=== PATIENT | male | born 1955 | race Caucasian/White ===

== ENCOUNTER 2016-11-26 15:10 | Inpatient (IN) | payer BC ==
[2016-11-26] MEDS ORDERED: Ondansetron 4 MG/2 ML SDV IVPUSH ONE (15:17)
[2016-11-26] MEDS ORDERED: Pantoprazole 40 MG Vial IVPUSH ONE (15:18)
[2016-11-26] MEDS: Sodium Chloride 0.9% 10 ML Syringe FLUSH PRN ×5 (15:24→23:45)
[2016-11-26] MEDS ORDERED: Albuterol/Ipratropium 3.0-0.5 MG/3 ML Neb Soln ONE (15:37)
[2016-11-26] MEDS ORDERED: Albuterol/Ipratropium 3.0-0.5 MG/3 ML Neb Soln NEB ONE (15:41)
[2016-11-26] MEDS ORDERED: Iopamidol 755 Mg/ML 100 ML Bottle IV ONE (16:52)
--- NOTE | 2016-11-26 18:31 | EDM.PDOC ---
ED HPI GENERAL MEDICAL PROBLEM - General Chief Complaint: Respiratory Problem Stated Complaint: SOB Time Seen by Provider: 11/26/16 15:10 Source of Information: Reports: Patient History Limitations: Reports: No Limitations - History of Present Illness INITIAL COMMENTS - FREE TEXT/NARRATIVE: 61 y.o.w.m with h/o of Intermittant Hypoglycemia since a child, pneumonia came to the ed with chest pain when taking a deep breath. Pt lives in his truck-18 man. Pt states his pain comes on when he takes a deep breath or turns to the side. "something is wring with me" he stated. BP was 98/56. O2 94 PULS was 112. No N/V/D Onset: Unknown/Unsure Onset Date: 11/20/16 Onset Time: 07:00 Duration: Day(s):, Intermittent Location: Reports: Chest, Generalized Quality: Reports: Dull Severity: Moderate Improves with: Reports: Cold Therapy, Immobilization, Rest Worsens with: Reports: Movement Context: Reports: Other (lives in his truck) Associated Symptoms: Reports: Weakness Generalized Pain Score (Numeric/FACES): 8 - Related Data Allergies Allergy/AdvReac Type Severity Reaction Status Date / Time No Known Allergies Allergy Verified 11/26/16 15:19 Home Meds: Home Meds Levothyroxine 75 mcg PO ACBREAKFAST 11/26/16 [History] Meloxicam [Mobic] 15 mg PO DAILY 11/26/16 [History] Past Medical History Respiratory History: Reports: SOB Endocrine/Metabolic History: Reports: Diabetes, Type II - Infectious Disease History Infectious Disease History: Reports: Chicken Pox Social & Family History - Tobacco Use Smoking Status *Q: Never Smoker - Recreational Drug Use Recreational Drug Use: No ED ROS GENERAL - Review of Systems Review Of Systems: See Below Constitutional: Reports: Weakness HEENT: Reports: No Symptoms Respiratory: Reports: Pleuritic Chest Pain Cardiovascular: Reports: Chest Pain Endocrine: Reports: Other (h/o hypoglycemia) GI/Abdominal: Reports: No Symptoms : Reports: No Symptoms Musculoskeletal: Reports: Muscle Pain Skin: Reports: No Symptoms Neurological: Reports: No Symptoms Psychiatric: Reports: No Symptoms Hematologic/Lymphatic: Reports: No Symptoms Immunologic: Reports: No Symptoms ED EXAM, GENERAL - Physical Exam Exam: See Below Exam Limited By: No Limitations General Appearance: Alert, WD/WN, Mild Distress, Obese (morbid) Eye Exam: Bilateral Eye: Normal Inspection Ears: Normal External Exam Ear Exam: Bilateral Ear: Auricle Normal Nose: Normal Inspection, Normal Mucosa Throat/Mouth: Normal Lips, Other (dry mucosal membrane) Head: Atraumatic, Normocephalic Neck: Normal Inspection, Supple, Non-Tender, Full Range of Motion Respiratory/Chest: No Respiratory Distress, Lungs Clear, Normal Breath Sounds, No Accessory Muscle Use Cardiovascular: Normal Peripheral Pulses, Regular Rate, Rhythm, No Edema, No Gallop, No JVD Peripheral Pulses: 1+: Femoral (L), Femoral (R) GI/Abdominal: Normal Bowel Sounds, Soft, Non-Tender, No Organomegaly (Male) Exam: Deferred Rectal (Males) Exam: Deferred Back Exam: Normal Inspection, Full Range of Motion Extremities: Normal Inspection, Normal Range of Motion Neurological: Alert, Oriented, CN II-XII Intact, Normal Cognition, Normal Gait Psychiatric: Normal Affect, Normal Mood Skin Exam: Warm, Dry, Intact, Normal Color, No Rash Lymphatic: No Adenopathy EKG INTERPRETATION EKG Date: 11/26/16 Time: 15:10 Rhythm: NSR Rate (Beats/Min): 112 [place]: LAD-Left [place] Deviation P-Wave: Present QRS: Normal ST-T: Normal QT: Normal Comparison: NA - No Prior EKG Course - Vital Signs Text/Narrative:: 61 y.o.w.m with h/o of Intermittant Hypoglycemia since a child, pneumonia came to the ed with chest pain when taking a deep breath. Pt lives in his truck-18 man. Pt states his pain comes on when he takes a deep breath or turns to the side. "something is wring with me" he stated. BP was 98/56. O2 94 PULS was 112. No N/V/D PE: Morbid obes, chest pain with movement Labs: WBC 14.6 Neutrophils 93%D Dimer 408, Na 132 BNP 47 UA: Occult hematuria Imaging: CT chest neg for PE, No infiltrates. Impresion: Morbid obese, gen weakness, H/O pneumonia Tx: NS, Zofran, Duoneb, Protonix Reexam: Pt stated he is doing better but still feels weak. Plan: Admit for observation Last Recorded V/S: Last Vital Signs Temp 36.8 C 11/27/16 04:11 Pulse 93 11/27/16 04:11 Resp 18 11/27/16 04:11 BP 104/62 11/27/16 04:11 Pulse Ox 94 L 11/27/16 04:11 - Orders/Labs/Meds Orders: Active Orders 24 hr Category Date Time Status Ang Chest [CT] Stat Exams 11/26/16 16:30 Taken Chest 1V Frontal [CR] Stat Exams 11/26/16 15:17 Taken Sodium Chloride 0.9% [Saline Flush] Med 11/26/16 15:18 Active 10 ml FLUSH ASDIRECTED PRN Saline Lock Insert [OM.PC] Routine Oth 11/26/16 15:18 Ordered EKG 12 Lead [EK] Routine Ther 11/26/16 15:18 Ordered Medication Orders Acetaminophen (Tylenol) 650 mg PO Q4H PRN PRN Reason: Headache Last Admin: 11/27/16 01:11 Dose: 650 mg Admin: 11/26/16 22:26 Dose: 650 mg Sodium Chloride (Normal Saline) 250 mls @ 0 mls/hr IV ASDIRECTED ZINA PRN Reason: KVO Last Admin: 11/26/16 22:33 Dose: 25 mls/hr Sodium Chloride (Saline Flush) 10 ml FLUSH ASDIRECTED PRN PRN Reason: Keep Vein Open Last Admin: 11/27/16 05:13 Dose: 10 ml Admin: 11/26/16 23:45 Dose: 10 ml Admin: 11/26/16 16:50 Dose: 10 ml Admin: 11/26/16 16:48 Dose: 10 ml Admin: 11/26/16 15:27 Dose: 10 ml Admin: 11/26/16 15:24 Dose: 10 ml Sodium Chloride (Saline Flush) 10 ml FLUSH ASDIRECTED PRN PRN Reason: IV Use Labs: Laboratory Tests 11/26/16 11/26/16 11/26/16 Range/Units 15:30 15:30 15:30 WBC 14.8 H (4.5-12.0) X10-3/uL RBC 4.65 (4.30-5.75) x10(6)uL Hgb 14.1 (11.5-15.5) g/dL Hct 40.9 (30.0-51.3) % MCV 88.1 (80-96) fL MCH 30.4 (27.7-33.6) pg MCHC 34.5 (32.2-35.4) g/dL RDW 12.1 (11.5-15.5) % Plt Count 163 (125-369) X10(3)uL MPV 8.6 (7.4-10.4) fL Add Manual Diff Yes Neutrophils % (Manual) 93 H (46-82) % Band Neutrophils % 3 (0-6) % Lymphocytes % (Manual) 1 L (13-37) % Monocytes % (Manual) 3 L (4-12) % D-Dimer, Quantitative 408 H (100-400) ng/mL Sodium 132 L (135-145) mmol/L Potassium 3.8 (3.5-5.3) mmol/L Chloride 100 (100-110) mmol/L Carbon Dioxide 24 (23-29) mmol/L BUN 16 (8-23) mg/dL Creatinine 0.9 (0.6-1.3) mg/dL Est Cr Clr Drug Dosing 89.00 mL/min Estimated GFR (MDRD) > 60 (>60) BUN/Creatinine Ratio 17.8 (9-20) Glucose 167 H (80-116) mg/dL Lactic Acid (0.5-2.2) mmol/L Calcium 9.3 (8.6-10.2) mg/dL Troponin I (0.02-0.06) NG/ML B-Natriuretic Peptide (0-100) pg/mL Urine Color (YELLOW) Urine Appearance (CLEAR) Urine pH (5.0-6.5) Ur Specific Ponce (1.010-1.025) Urine Protein (NEGATIVE) mg/dL Urine Glucose (UA) (NEGATIVE) mg/dL Urine Ketones (NEGATIVE) mg/dL Urine Occult Blood (NEGATIVE) Urine Nitrite (NEGATIVE) Urine Bilirubin (NEGATIVE) Urine Urobilinogen (NEGATIVE) mg/dL Ur Leukocyte Esterase (NEGATIVE) Urine RBC (0) Urine WBC (0) Ur Squamous Epith Cells (NS,R,O) Urine Bacteria (NS) 11/26/16 11/26/16 11/26/16 Range/Units 15:30 15:30 15:30 WBC (4.5-12.0) X10-3/uL RBC (4.30-5.75) x10(6)uL Hgb (11.5-15.5) g/dL Hct (30.0-51.3) % MCV (80-96) fL MCH (27.7-33.6) pg MCHC (32.2-35.4) g/dL RDW (11.5-15.5) % Plt Count (125-369) X10(3)uL MPV (7.4-10.4) fL Add Manual Diff Neutrophils % (Manual) (46-82) % Band Neutrophils % (0-6) % Lymphocytes % (Manual) (13-37) % Monocytes % (Manual) (4-12) % D-Dimer, Quantitative (100-400) ng/mL Sodium (135-145) mmol/L Potassium (3.5-5.3) mmol/L Chloride (100-110) mmol/L Carbon Dioxide (23-29) mmol/L BUN (8-23) mg/dL Creatinine (0.6-1.3) mg/dL Est Cr Clr Drug Dosing mL/min Estimated GFR (MDRD) (>60) BUN/Creatinine Ratio (9-20) Glucose (80-116) mg/dL Lactic Acid 2.1 (0.5-2.2) mmol/L Calcium (8.6-10.2) mg/dL Troponin I < 0.01 L (0.02-0.06) NG/ML B-Natriuretic Peptide 45 (0-100) pg/mL Urine Color (YELLOW) Urine Appearance (CLEAR) Urine pH (5.0-6.5) Ur Specific [place] (1.010-1.025) Urine Protein (NEGATIVE) mg/dL Urine Glucose (UA) (NEGATIVE) mg/dL Urine Ketones (NEGATIVE) mg/dL Urine Occult Blood (NEGATIVE) Urine Nitrite (NEGATIVE) Urine Bilirubin (NEGATIVE) Urine Urobilinogen (NEGATIVE) mg/dL Ur Leukocyte Esterase (NEGATIVE) Urine RBC (0) Urine WBC (0) Ur Squamous Epith Cells (NS,R,O) Urine Bacteria (NS) 11/26/16 Range/Units 18:10 WBC (4.5-12.0) X10-3/uL RBC (4.30-5.75) x10(6)uL Hgb (11.5-15.5) g/dL Hct (30.0-51.3) % MCV (80-96) fL MCH (27.7-33.6) pg MCHC (32.2-35.4) g/dL RDW (11.5-15.5) % Plt Count (125-369) X10(3)uL MPV (7.4-10.4) fL Add Manual Diff Neutrophils % (Manual) (46-82) % Band Neutrophils % (0-6) % Lymphocytes % (Manual) (13-37) % Monocytes % (Manual) (4-12) % D-Dimer, Quantitative (100-400) ng/mL Sodium (135-145) mmol/L Potassium (3.5-5.3) mmol/L Chloride (100-110) mmol/L Carbon Dioxide (23-29) mmol/L BUN (8-23) mg/dL Creatinine (0.6-1.3) mg/dL Est Cr Clr Drug Dosing mL/min Estimated GFR (MDRD) (>60) BUN/Creatinine Ratio (9-20) Glucose (80-116) mg/dL Lactic Acid (0.5-2.2) mmol/L Calcium (8.6-10.2) mg/dL Troponin I (0.02-0.06) NG/ML B-Natriuretic Peptide (0-100) pg/mL Urine Color Yellow (YELLOW) Urine Appearance Clear (CLEAR) Urine pH 5.0 (5.0-6.5) Ur Specific [place] 1.010 (1.010-1.025) Urine Protein Negative (NEGATIVE) mg/dL Urine Glucose (UA) Normal (NEGATIVE) mg/dL Urine Ketones Negative (NEGATIVE) mg/dL Urine Occult Blood Moderate H (NEGATIVE) Urine Nitrite Negative (NEGATIVE) Urine Bilirubin Negative (NEGATIVE) Urine Urobilinogen 1 H (NEGATIVE) mg/dL Ur Leukocyte Esterase Negative (NEGATIVE) Urine RBC 0-5 (0) Urine WBC 0-5 (0) Ur Squamous Epith Cells Occasional (NS,R,O) Urine Bacteria Rare H (NS) Meds: Medications Generic Name Dose Route Start Last Admin Trade Name Freq PRN Reason Stop Dose Admin Acetaminophen 650 mg 11/26/16 21:48 11/27/16 01:11 Tylenol PO 650 mg Q4H PRN Administration Headache Sodium Chloride 250 mls @ 0 mls/hr 11/26/16 22:30 11/26/16 22:33 Normal Saline IV 25 mls/hr ASDIRECTED ZINA Administration KVO Sodium Chloride 10 ml 11/26/16 15:18 11/27/16 05:13 Saline Flush FLUSH 10 ml ASDIRECTED PRN Administration Keep Vein Open Sodium Chloride 10 ml 11/26/16 22:16 Saline Flush FLUSH ASDIRECTED PRN IV Use Discontinued Medications Generic Name Dose Route Start Last Admin Trade Name Freq PRN Reason Stop Dose Admin Albuterol/Ipratropium Confirm 11/26/16 15:37 11/26/16 15:41 Duoneb 3.0-0.5 Mg/3 Ml Administered 11/26/16 15:38 3 ml Dose Administration 3 ml .ROUTE .STK-MED ONE Albuterol/Ipratropium 3 ml 11/26/16 15:41 11/26/16 15:45 Duoneb 3.0-0.5 Mg/3 Ml NEB 11/26/16 15:42 Not Given ONETIME ONE Levofloxacin/Dextrose 500 mg/ 100 mls @ 100 mls/hr 11/26/16 22:14 11/26/16 23 :46 Premix IV 11/26/16 23:13 Infused ONETIME ONE Infusion Iopamidol 85 ml 11/26/16 16:52 11/26/16 17:09 Isovue-370 (76%) IV 11/26/16 16:53 85 ml . DIRECTED ONE Administration Ketorolac Tromethamine 10 mg 11/27/16 04:50 11/27/16 05:11 Toradol IVPUSH 11/27/16 04:51 10 mg ONETIME ONE Administration Ondansetron HCl 8 mg 11/26/16 15:17 11/26/16 15:24 Zofran IVPUSH 11/26/16 15:18 8 mg ONETIME ONE Administration Pantoprazole Sodium 40 mg 11/26/16 15:18 11/26/16 15:24 Protonix Iv IVPUSH 11/26/16 15:19 40 mg ONETIME ONE Administration Departure - Departure Time of Disposition: 19:00 Disposition: Refer to Observation Condition: Fair Clinical Impression: Body aches - Discharge Information - My Orders Last 24 Hours: My Active Orders 11/26/16 15:17 Chest 1V Frontal [CR] Stat 11/26/16 15:18 Sodium Chloride 0.9% [Saline Flush] 10 ml FLUSH ASDIRECTED PRN Saline Lock Insert [OM.PC] Routine EKG 12 Lead [EK] Routine 11/26/16 16:30 Ang Chest [CT] Stat - Assessment/Plan Last 24 Hours: My Active Orders 11/26/16 15:17 Chest 1V Frontal [CR] Stat 11/26/16 15:18 Sodium Chloride 0.9% [Saline Flush] 10 ml FLUSH ASDIRECTED PRN Saline Lock Insert [OM.PC] Routine EKG 12 Lead [EK] Routine 11/26/16 16:30 Ang Chest [CT] Stat
[2016-11-26] MEDS ORDERED: Levofloxacin/Dextrose 5%-Water 500 MG in Premix Bag 1 BAG IV ONE (22:14)
[2016-11-26] MEDS ORDERED: Sodium Chloride 0.9% 10 ML Syringe FLUSH PRN (22:16)
[2016-11-26] MEDS: Acetaminophen 325 MG Tab PO PRN (22:26)
[2016-11-26] MEDS: Sodium Chloride 0.9% 250 ML IV SCH (22:33)
[2016-11-27] MEDS: Acetaminophen 325 MG Tab PO PRN ×2 (01:11→08:13)
[2016-11-27] MEDS ORDERED: Ketorolac 30 MG/ML SDV IVPUSH ONE (04:50)
[2016-11-27] MEDS: Sodium Chloride 0.9% 10 ML Syringe FLUSH PRN ×2 (05:13→13:30)
--- NOTE | 2016-11-27 09:23 | PCM.HP ---
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 He states he lives in his truck and drives 7 days a week from here to [facility] and [facility]. He says he'll dysuria wants but no pyuria or hematuria. He has no diarrhea, hematochezia or melena. He states he ate hamburger that was-day-old at a truck stop that maybe that's the reason he's having problems. He has had no tick exposure but has been bitten by mosquitoes. He feels very weak. He has no headaches or joint pain that he knows of. Denies rashes. He says he has a little bit of pain in his right medial thigh. Some chest pain last night it was worse with deep inspiration and rolling to his left. The him some oxygen he says that made it better and Tylenol did not help. Troponin and EKG were negative. Source of Information: Patient History Limitations: Reports: No Limitations Generalized Pain Score (Numeric/FACES): 8 - Related Data Allergies/Adverse Reactions: Allergies Allergy/AdvReac Type Severity Reaction Status Date / Time No Known Allergies Allergy Verified 11/26/16 15:19 Home Medications: Home Meds Levothyroxine 75 mcg PO ACBREAKFAST 11/26/16 [History] Meloxicam [Mobic] 15 mg PO DAILY 11/26/16 [History] Past Medical History Respiratory History: Reports: SOB Other Respiratory History: pneumonia 7 years ago Musculoskeletal History: Reports: Arthritis Endocrine/Metabolic History: Reports: Diabetes, Type II Other Endocrine/Metabolic History: hypoglycemic - Infectious Disease History Infectious Disease History: Reports: Chicken Pox Social & Family History - Family History Musculoskeletal: Reports: Arthritis Endocrine/Metabolic: Reports: Diabetes, Type I - Tobacco Use Smoking Status *Q: Never Smoker Second Hand Smoke Exposure: No - Caffeine Use Caffeine Use: Reports: Coffee Caffeine Use Comment: one cup in am - Recreational Drug Use Recreational Drug Use: No H&P Review of Systems - Review of Systems: Review Of Systems: See Below General: Reports: Fever, Chills, Malaise, Weakness, Night Sweats, Decreased Appetite HEENT: Reports: No Symptoms Pulmonary: Reports: Pleuritic Chest Pain, Cough, Sputum (Very minimal). Denies : Shortness of Breath, Wheezing Cardiovascular: Reports: Chest Pain Gastrointestinal: Reports: Nausea, Vomiting. Denies: Black Stool, Bloody Stool Genitourinary: Reports: Dysuria Musculoskeletal: Reports: No Symptoms Skin: Reports: No Symptoms Psychiatric: Reports: No Symptoms Neurological: Reports: No Symptoms Hematologic/Lymphatic: Reports: No Symptoms Immunologic: Reports: No Symptoms Exam - Exam Exam: See Below - Vital Signs Vital Signs: Last Vital Signs Temp 98.3 F 11/27/16 04:11 Pulse 74 11/27/16 08:20 Resp 18 11/27/16 04:11 BP 104/62 11/27/16 04:11 Pulse Ox 96 11/27/16 08:20 Weight: 328 lb - Exam General: Alert, Oriented, Cooperative HEENT: Hearing Intact, Mucosa Moist & [place], Posterior Pharynx Clear, TMs Clear Neck: Supple Lungs: Clear to Auscultation, Normal Respiratory Effort. No: Crackles, Rales, Rhonchi, Rub Cardiovascular: Regular Rate, Regular Rhythm, Normal S1, Normal S2. No: Bradycardia, Tachycardia, Systolic Murmur, Diastolic Murmur GI/Abdominal Exam: Normal Bowel Sounds, Soft, Non-Tender, No Organomegaly, No Distention, No Abnormal Bruit, No Mass, Pelvis Stable Rectal (Males) Exam: Normal Exam, Normal Rectal Tone, Other (Straight and large nontender) Back Exam: Normal Inspection, Full Range of Motion, NT Extremities: Normal Range of Motion, Redness (Right lower extremity and painful to touch with some swelling.) Skin: Warm, Dry, Intact Neuro Extensive - Mental Status: Alert, Oriented x3, Normal Mood/Affect, Normal Cognition Psychiatric: Alert, Normal Affect, Normal Mood - Patient Data Result Diagrams: 11/26/16 15:30 11/26/16 15:30 *Q Meaningful Use (ADM) - VTE *Q VTE Criteria *Q: - Stroke *Q Stroke Criteria *Q: - AMI *Q AMI Criteria *Q: - Problem List (1) Cellulitis of leg without foot, left SNOMED Code(s): 213669792 ICD Code: L03.116 - CELLULITIS OF LEFT LOWER LIMB Status: Acute Current Visit: Yes (2) Dysuria SNOMED Code(s): 17726700 ICD Code: R30.0 - DYSURIA Status: Acute Current Visit: Yes (3) Bronchitis SNOMED Code(s): 40027636 ICD Code: J40 - BRONCHITIS, NOT SPECIFIED ACUTE OR CHRONIC Status: Acute Current Visit: Yes Problem List Initiated/Reviewed/Updated: Yes Orders Last 24hrs: Active Orders 24 hr Category Date Time Status Activity as Tolerated [RC] .Routine Care 11/26/16 22:20 Active EKG Documentation Completion [RC] ASDIRECTED Care 11/27/16 09:13 Active IS (RT) [RT Incentive Spirometry] [RC] ASDIRECTED Care 11/27/16 07:16 Active Regular Diet [DIET] Diet 11/27/16 Breakfast Active VL Duplex Lwr Ext Art Ltd Rt [US] Routine Exams 11/27/16 09:11 Ordered CBC WITH AUTO DIFF [HEME] Routine Lab 11/27/16 09:11 Ordered TROPONIN I [CHEM] Routine Lab 11/27/16 09:11 Ordered [place] VIRUS,AB CSF [REF] Routine Lab 11/27/16 09:17 Ordered Acetaminophen [Tylenol] Med 11/26/16 21:48 Active 650 mg PO Q4H PRN Levothyroxine Med 11/28/16 07:30 Ordered 75 mcg PO ACBREAKFAST Meloxicam [Mobic] Med 11/28/16 09:00 Ordered 15 mg PO DAILY Sodium Chloride 0.9% [Normal Saline] 250 ml Med 11/26/16 22:30 Active IV ASDIRECTED Sodium Chloride 0.9% [Saline Flush] Med 11/26/16 22:16 Active 10 ml FLUSH ASDIRECTED PRN EKG 12 Lead [EK] Routine Ther 11/27/16 04:30 Ordered EKG 12 Lead [EK] Stat Ther 11/27/16 09:13 Ordered Medication Orders Acetaminophen (Tylenol) 650 mg PO Q4H PRN PRN Reason: Headache Last Admin: 11/27/16 08:13 Dose: 650 mg Admin: 11/27/16 01:11 Dose: 650 mg Admin: 11/26/16 22:26 Dose: 650 mg Sodium Chloride (Normal Saline) 250 mls @ 0 mls/hr IV ASDIRECTED ZINA PRN Reason: KVO Last Admin: 11/26/16 22:33 Dose: 25 mls/hr Levothyroxine Sodium (Levothyroxine) 75 mcg PO ACBREAKFAST ZINA Meloxicam (Mobic) 15 mg PO DAILY ZINA Sodium Chloride (Saline Flush) 10 ml FLUSH ASDIRECTED PRN PRN Reason: Keep Vein Open Last Admin: 11/27/16 05:13 Dose: 10 ml Admin: 11/26/16 23:45 Dose: 10 ml Admin: 11/26/16 16:50 Dose: 10 ml Admin: 11/26/16 16:48 Dose: 10 ml Admin: 11/26/16 15:27 Dose: 10 ml Admin: 11/26/16 15:24 Dose: 10 ml Sodium Chloride (Saline Flush) 10 ml FLUSH ASDIRECTED PRN PRN Reason: IV Use Assessment/Plan Comment:: 1. Admit for IV rehydration and antibiotics 2. Ultrasound right lower extremity. 3. Repeat troponin and West Nile virus, CBC. 4. Restart his home medications.
[2016-11-27] MEDS: Levothyroxine 75 MCG Tab PO SCH (10:25)
[2016-11-27] MEDS: Acetaminophen/HYDROcodone 325-5 MG Tab PO PRN ×3 (10:35→22:15)
--- NOTE | 2016-11-27 11:15 | CR ---
INDICATION: Short of breath. CHEST: An AP upright portable view of the chest 11/26/2016 revealed the heart to be normal in size and shape. The aorta is somewhat tortuous with minimal calcification in the arch. Overlying EKG leads are noted. A definite active infiltrate or effusion was not identified. Evidence of exogenous obesity is noted. IMPRESSION: 1. No acute process. 2. ASD aorta. 3. Exogenous obesity. MTDD
[2016-11-27] MEDS: Sodium Chloride 0.9% 250 ML IV SCH (13:30)
[2016-11-27] MEDS: Piperacillin/Tazobactam 3.375 GM in Sodium Chloride 0.9% 50 ML IV SCH (19:31)
[2016-11-27] MEDS ORDERED: Vancomycin 2 GM in Sodium Chloride 0.9% 500 ML IV SCH (20:00)
[2016-11-27] MEDS ORDERED: Levofloxacin/Dextrose 5%-Water 500 MG in Premix Bag 1 BAG IV SCH (22:00)
[2016-11-27] MEDS ORDERED: Levofloxacin/Dextrose 5%-Water 100 ML IV ONE (23:47)
[2016-11-28] MEDS: Acetaminophen/HYDROcodone 325-5 MG Tab PO PRN ×3 (01:38→22:34)
[2016-11-28] MEDS: Piperacillin/Tazobactam 3.375 GM in Sodium Chloride 0.9% 50 ML IV SCH ×4 (01:45→18:50)
[2016-11-28] MEDS: Levothyroxine 75 MCG Tab PO SCH (06:31)
--- NOTE | 2016-11-28 09:06 | US ---
INDICATION: Swollen red calf on the right, question DVT. DUPLEX ULTRASOUND, RIGHT LOWER EXTREMITY VEINS: Utilizing 2-D real time, duplex Doppler spectral analysis, and color flow imaging, examination of the right lower extremity veins revealed no evidence of deep venous thrombosis or obstruction. Compression views showed no abnormal lack of compression to suggest thrombosis. No evidence of incompetence of the valves was identified. The anterior tibial vein was not adequately visualized in its distal portion, but was visualized in the proximal one-half. IMPRESSION: Duplex ultrasound, right lower extremity veins, shows no evidence of deep venous thrombosis or incompetence. MTDD
--- NOTE | 2016-11-28 09:24 | PCM.PN ---
- General Info Date of Service: 11/28/16 Admission Dx/Problem (Free Text): Patient states he still feels achy all over but in 7-10 out of 10 is now 4 out of 10. Says right lower leg stauffer more than it did before. Next 11 fevers and chills and sweats. - Patient Data Vitals - Most Recent: Last Vital Signs Temp 99.4 F 11/28/16 06:30 Pulse 96 11/28/16 06:30 Resp 20 11/28/16 06:30 BP 124/85 11/28/16 06:30 Pulse Ox 94 L 11/28/16 06:30 Weight - Most Recent: 328 lb I&O - Last 24 Hours: Intake & Output 11/27/16 11/28/16 11/28/16 22:59 06:59 14:59 Intake Total 702 2128 Output Total 400 1900 Balance 302 228 Lab Results Last 24 Hours: Laboratory Results - last 24 hr 11/27/16 11/27/16 11/28/16 Range/Units 09:31 09:31 06:32 WBC 15.3 H 13.8 H (4.5-12.0) X10-3/uL RBC 4.37 4.34 (4.30-5.75) x10(6)uL Hgb 13.5 13.2 (11.5-15.5) g/dL Hct 39.0 38.9 (30.0-51.3) % MCV 89.3 89.5 (80-96) fL MCH 30.9 30.3 (27.7-33.6) pg MCHC 34.6 33.8 (32.2-35.4) g/dL RDW 12.6 12.6 (11.5-15.5) % Plt Count 140 137 (125-369) X10(3)uL MPV 8.2 8.9 (7.4-10.4) fL Add Manual Diff Yes Yes Neutrophils % (Manual) 90 H 87 H (46-82) % Band Neutrophils % 4 6 (0-6) % Lymphocytes % (Manual) 4 L 4 L (13-37) % Monocytes % (Manual) 2 L 2 L (4-12) % Eosinophils % (Manual) 1 (0-5) % Troponin I < 0.01 L (0.02-0.06) NG/ML Med Orders - Current: Current Medications Acetaminophen (Tylenol) 650 mg PO Q4H PRN PRN Reason: Headache Last Admin: 11/27/16 08:13 Dose: 650 mg Hydrocodone Bitart/Acetaminophen ([place] 325-5 Mg) 1 tab PO Q4H PRN PRN Reason: Pain Last Admin: 11/28/16 06:44 Dose: 1 tab Enoxaparin Sodium (Lovenox) 40 mg SUBCUT Q24H [facility] Sodium Chloride (Normal Saline) 250 mls @ 0 mls/hr IV ASDIRECTED [facility] PRN Reason: KVO Last Admin: 11/27/16 13:30 Dose: 30 mls/hr Levofloxacin/Dextrose 500 mg/ (Premix) 100 mls @ 100 mls/hr IV Q24H [facility] Last Admin: 11/28/16 00:07 Dose: 100 mls/hr Piperacillin Sod/Tazobactam (Sod 3.375 gm/ Sodium Chloride) 50 mls @ 100 mls/ hr IV Q6H [facility] Last Admin: 11/28/16 06:30 Dose: 100 mls/hr Vancomycin HCl 2,000 mg/ (Sodium Chloride) 500 mls @ 250 mls/hr IV Q12H [facility] Last Admin: 11/28/16 08:10 Dose: 250 mls/hr Ibuprofen (Motrin) 600 mg PO Q6H [facility] Levothyroxine Sodium (Levothyroxine) 75 mcg PO ACBREAKFAST [facility] Last Admin: 11/28/16 06:31 Dose: 75 mcg Sodium Chloride (Saline Flush) 10 ml FLUSH ASDIRECTED PRN PRN Reason: Keep Vein Open Last Admin: 11/27/16 13:30 Dose: 10 ml Sodium Chloride (Saline Flush) 10 ml FLUSH ASDIRECTED PRN PRN Reason: IV Use Vancomycin HCl (Pharmacy To Dose - Vancomycin) 1 dose .XX ASDIRECTED [facility] Discontinued Medications Albuterol/Ipratropium (Duoneb 3.0-0.5 Mg/3 Ml) Confirm Administered Dose 3 ml .ROUTE .STK-MED ONE Stop: 11/26/16 15:38 Last Admin: 11/26/16 15:41 Dose: 3 ml Albuterol/Ipratropium (Duoneb 3.0-0.5 Mg/3 Ml) 3 ml NEB ONETIME ONE Stop: 11/26/16 15:42 Last Admin: 11/26/16 15:45 Dose: Not Given Levofloxacin/Dextrose 500 mg/ (Premix) 100 mls @ 100 mls/hr IV ONETIME ONE Stop: 11/26/16 23:13 Last Infusion: 11/26/16 23:46 Dose: Infused Clindamycin Phosphate 600 mg/ (Sodium Chloride) 54 mls @ 150 mls/hr IV Q6H [facility] Last Admin: 11/27/16 13:30 Dose: 150 mls/hr Vancomycin HCl 2 gm/ Sodium (Chloride) 500 mls @ 250 mls/hr IV Q12H [facility] Last Admin: 11/27/16 21:09 Dose: 250 mls/hr Levofloxacin/Dextrose (Levaquin In D5w 500 Mg/100 Ml) Confirm Administered Dose 100 mls @ as directed IV .STK-MED ONE Stop: 11/27/16 23:48 Last Admin: 11/28/16 00:08 Dose: Not Given Iopamidol (Isovue-370 (76%)) 85 ml IV . DIRECTED ONE Stop: 11/26/16 16:53 Last Admin: 11/26/16 17:09 Dose: 85 ml Ketorolac Tromethamine (Toradol) 10 mg IVPUSH ONETIME ONE Stop: 11/27/16 04:51 Last Admin: 11/27/16 05:11 Dose: 10 mg Meloxicam (Mobic) 15 mg PO DAILY [facility] Last Admin: 11/28/16 08:11 Dose: 15 mg Ondansetron HCl (Zofran) 8 mg IVPUSH ONETIME ONE Stop: 11/26/16 15:18 Last Admin: 11/26/16 15:24 Dose: 8 mg Pantoprazole Sodium (Protonix Iv) 40 mg IVPUSH ONETIME ONE Stop: 11/26/16 15:19 Last Admin: 11/26/16 15:24 Dose: 40 mg Vancomycin HCl (Pharmacy To Dose - Vancomycin) 1 dose .XX ASDIRECTED [facility] - Exam General: Alert, Oriented, Cooperative Lungs: Clear to Auscultation, Normal Respiratory Effort Skin: Other (Erythema right lower calf. Little bit in the medial thigh.) - Problem List & Annotations (1) Cellulitis of leg without foot, left SNOMED Code(s): 275883118 Code(s): L03.116 - CELLULITIS OF LEFT LOWER LIMB Status: Acute Current Visit: Yes (2) Dysuria SNOMED Code(s): 06936987 Code(s): R30.0 - DYSURIA Status: Acute Current Visit: Yes (3) Bronchitis SNOMED Code(s): 75345051 Code(s): J40 - BRONCHITIS, NOT SPECIFIED ACUTE OR CHRONIC Status: Acute Current Visit: Yes - Problem List Review Problem List Initiated/Reviewed/Updated: Yes - My Orders Last 24 Hours: My Active Orders 11/27/16 09:13 EKG 12 Lead [EK] Stat 11/27/16 09:30 [place] VIRUS,PANEL IGG,IGM [REF] Routine Levothyroxine 75 mcg PO ACBREAKFAST 11/27/16 10:24 Acetaminophen/HYDROcodone [[place] 325-5 MG] 1 tab PO Q4H PRN 11/27/16 18:15 Piperacillin/Tazobactam [Zosyn] 3.375 gm Sodium Chloride 0.9% [Normal Saline] 50 ml IV Q6H 11/27/16 18:45 Vancomycin Pharmacy to Dose [Pharmacy to Dose - Vancomycin] 1 dose .XX ASDIRECTED 11/27/16 22:00 Levofloxacin/Dextrose 5%-Water [Levaquin in D5W 500 MG/100 ML] 500 mg Premix Bag 1 bag IV Q24H 11/28/16 08:00 Vancomycin 2,000 mg Sodium Chloride 0.9% [Normal Saline] 500 ml IV Q12H 11/28/16 08:30 Ibuprofen [Motrin] 600 mg PO Q6H 11/28/16 09:00 Enoxaparin [Lovenox] 40 mg SUBCUT Q24H 11/29/16 07:30 VANCOMYCIN TROUGH [CHEM] Routine - Plan Plan:: 1 continue current care. 2. Stop meloxicam and start ibuprofen 600 mg every 6 hours scheduled.
[2016-11-28] MEDS: Enoxaparin 40 MG/0.4 ML Syringe SUBCUT SCH (10:03)
[2016-11-28] MEDS: Ibuprofen 600 MG Tab PO SCH ×3 (10:04→19:59)
[2016-11-28] MEDS: Sodium Chloride 0.9% 250 ML IV SCH (18:51)
[2016-11-29] MEDS: Piperacillin/Tazobactam 3.375 GM in Sodium Chloride 0.9% 50 ML IV SCH ×4 (00:35→18:35)
[2016-11-29] MEDS: Ibuprofen 600 MG Tab PO SCH ×4 (02:37→20:07)
[2016-11-29] MEDS: Acetaminophen/HYDROcodone 325-5 MG Tab PO PRN ×2 (04:38→20:06)
[2016-11-29] MEDS: Levothyroxine 75 MCG Tab PO SCH (06:38)
[2016-11-29] MEDS: Enoxaparin 40 MG/0.4 ML Syringe SUBCUT SCH (08:08)
[2016-11-29] MEDS: Sodium Chloride 0.9% 250 ML IV SCH ×4 (09:23→20:21)
--- NOTE | 2016-11-29 09:55 | PCM.PN ---
- General Info Date of Service: 11/29/16 Admission Dx/Problem (Free Text): Patient states that he did not have any aches fevers or chills last night. Just a little bit of sweats this morning. He had burning pain in his right lower leg last night. They gave him hydrocodone and it got better. Overall he states he feels better - Patient Data Vitals - Most Recent: Last Vital Signs Temp 99.3 F 11/29/16 04:35 Pulse 82 11/29/16 04:35 Resp 20 11/29/16 04:35 BP 101/63 11/29/16 04:35 Pulse Ox 93 L 11/29/16 04:35 Weight - Most Recent: 328 lb I&O - Last 24 Hours: Intake & Output 11/28/16 11/29/16 11/29/16 22:59 06:59 14:59 Intake Total 610 690 Balance 610 690 Lab Results Last 24 Hours: Laboratory Results - last 24 hr 11/27/16 11/29/16 11/29/16 Range/Units 09:30 07:41 07:41 WBC 10.2 (4.5-12.0) X10-3/uL RBC 4.23 L (4.30-5.75) x10(6)uL Hgb 12.8 (11.5-15.5) g/dL Hct 37.4 (30.0-51.3) % MCV 88.2 (80-96) fL MCH 30.3 (27.7-33.6) pg MCHC 34.3 (32.2-35.4) g/dL RDW 12.5 (11.5-15.5) % Plt Count 132 (125-369) X10(3)uL MPV 8.4 (7.4-10.4) fL Add Manual Diff Yes Neutrophils % (Manual) 78 (46-82) % Band Neutrophils % 3 (0-6) % Lymphocytes % (Manual) 13 (13-37) % Monocytes % (Manual) 5 (4-12) % Eosinophils % (Manual) 1 (0-5) % Vancomycin Trough 10.0 (10-15) ug/mL [place] Virus IgG Ab 0.09 (<1.30) West Nile Virus IgM Ab 0.11 (<0.90) West Nile Interp See below Med Orders - Current: Current Medications Acetaminophen (Tylenol) 650 mg PO Q4H PRN PRN Reason: Headache Last Admin: 11/27/16 08:13 Dose: 650 mg Hydrocodone Bitart/Acetaminophen ([place] 325-5 Mg) 1 tab PO Q4H PRN PRN Reason: Pain Last Admin: 11/29/16 04:38 Dose: 1 tab Enoxaparin Sodium (Lovenox) 40 mg SUBCUT Q24H [facility] Last Admin: 11/29/16 08:08 Dose: 40 mg Sodium Chloride (Normal Saline) 250 mls @ 0 mls/hr IV ASDIRECTED [facility] PRN Reason: KVO Last Admin: 11/29/16 09:23 Dose: 100 mls/hr Piperacillin Sod/Tazobactam (Sod 3.375 gm/ Sodium Chloride) 50 mls @ 100 mls/ hr IV Q6H [facility] Last Admin: 11/29/16 05:27 Dose: 100 mls/hr Vancomycin HCl 2,000 mg/ (Sodium Chloride) 500 mls @ 250 mls/hr IV Q12H [facility] Last Admin: 11/29/16 09:21 Dose: 250 mls/hr Ibuprofen (Motrin) 600 mg PO Q6H [facility] Last Admin: 11/29/16 08:09 Dose: 600 mg Levothyroxine Sodium (Levothyroxine) 75 mcg PO ACBREAKFAST [facility] Last Admin: 11/29/16 06:38 Dose: 75 mcg Sodium Chloride (Saline Flush) 10 ml FLUSH ASDIRECTED PRN PRN Reason: Keep Vein Open Last Admin: 11/27/16 13:30 Dose: 10 ml Sodium Chloride (Saline Flush) 10 ml FLUSH ASDIRECTED PRN PRN Reason: IV Use Vancomycin HCl (Pharmacy To Dose - Vancomycin) 1 dose .XX ASDIRECTED [facility] Discontinued Medications Albuterol/Ipratropium (Duoneb 3.0-0.5 Mg/3 Ml) Confirm Administered Dose 3 ml .ROUTE .STK-MED ONE Stop: 11/26/16 15:38 Last Admin: 11/26/16 15:41 Dose: 3 ml Albuterol/Ipratropium (Duoneb 3.0-0.5 Mg/3 Ml) 3 ml NEB ONETIME ONE Stop: 11/26/16 15:42 Last Admin: 11/26/16 15:45 Dose: Not Given Levofloxacin/Dextrose 500 mg/ (Premix) 100 mls @ 100 mls/hr IV ONETIME ONE Stop: 11/26/16 23:13 Last Infusion: 11/26/16 23:46 Dose: Infused Clindamycin Phosphate 600 mg/ (Sodium Chloride) 54 mls @ 150 mls/hr IV Q6H [facility] Last Admin: 11/27/16 13:30 Dose: 150 mls/hr Levofloxacin/Dextrose 500 mg/ (Premix) 100 mls @ 100 mls/hr IV Q24H [facility] Last Admin: 11/28/16 00:07 Dose: 100 mls/hr Vancomycin HCl 2 gm/ Sodium (Chloride) 500 mls @ 250 mls/hr IV Q12H [facility] Last Admin: 11/27/16 21:09 Dose: 250 mls/hr Levofloxacin/Dextrose (Levaquin In D5w 500 Mg/100 Ml) Confirm Administered Dose 100 mls @ as directed IV .STK-MED ONE Stop: 11/27/16 23:48 Last Admin: 11/28/16 00:08 Dose: Not Given Iopamidol (Isovue-370 (76%)) 85 ml IV . DIRECTED ONE Stop: 11/26/16 16:53 Last Admin: 11/26/16 17:09 Dose: 85 ml Ketorolac Tromethamine (Toradol) 10 mg IVPUSH ONETIME ONE Stop: 11/27/16 04:51 Last Admin: 11/27/16 05:11 Dose: 10 mg Meloxicam (Mobic) 15 mg PO DAILY [facility] Last Admin: 11/28/16 08:11 Dose: 15 mg Ondansetron HCl (Zofran) 8 mg IVPUSH ONETIME ONE Stop: 11/26/16 15:18 Last Admin: 11/26/16 15:24 Dose: 8 mg Pantoprazole Sodium (Protonix Iv) 40 mg IVPUSH ONETIME ONE Stop: 11/26/16 15:19 Last Admin: 11/26/16 15:24 Dose: 40 mg Vancomycin HCl (Pharmacy To Dose - Vancomycin) 1 dose .XX ASDIRECTED [facility] - Exam General: Alert, Oriented Lungs: Normal Respiratory Effort Extremities: Other (Right leg as erythema over the lower leg that's well demarcated. Maybe a little bit more erythema in the right proximal thigh. Over the right knee it's less. It feels cooler to the touch than it did before.) - Problem List & Annotations (1) Cellulitis of leg without foot, left SNOMED Code(s): 842361730 Code(s): L03.116 - CELLULITIS OF LEFT LOWER LIMB Status: Acute Current Visit: Yes - Problem List Review Problem List Initiated/Reviewed/Updated: Yes - My Orders Last 24 Hours: My Active Orders 11/28/16 09:00 Enoxaparin [Lovenox] 40 mg SUBCUT Q24H 11/28/16 09:24 Blood Culture x2 Reflex Set [OM.PC] Urgent 11/28/16 10:05 CULTURE BLOOD [BC] Urgent CULTURE BLOOD [BC] Urgent - Plan Plan:: 1 continue current care.
[2016-11-29] MEDS: Sodium Chloride 0.9% 10 ML Syringe FLUSH PRN ×2 (10:20→13:17)
[2016-11-30] MEDS: Sodium Chloride 0.9% 250 ML IV SCH (00:10)
[2016-11-30] MEDS: Piperacillin/Tazobactam 3.375 GM in Sodium Chloride 0.9% 50 ML IV SCH ×4 (00:11→18:29)
[2016-11-30] MEDS: Sodium Chloride 0.9% 10 ML Syringe FLUSH PRN ×3 (01:03→19:25)
[2016-11-30] MEDS: Ibuprofen 600 MG Tab PO SCH (02:28)
--- NOTE | 2016-11-30 07:14 | PCM.PN ---
- General Info Date of Service: 11/30/16 Admission Dx/Problem (Free Text): Patient states he had a good night. He had no fevers, chills, achiness. The pain in his right lower leg is better and he did not burn last night. He felt the lower leg was not warm last night. - Patient Data Vitals - Most Recent: Last Vital Signs Temp 98.3 F 11/30/16 06:00 Pulse 68 11/30/16 06:00 Resp 18 11/30/16 06:00 BP 127/76 11/30/16 06:00 Pulse Ox 96 11/30/16 06:00 Weight - Most Recent: 328 lb I&O - Last 24 Hours: Intake & Output 11/29/16 11/30/16 11/30/16 22:59 06:59 14:59 Intake Total 650 530 Output Total 1350 Balance 650 -820 Med Orders - Current: Current Medications Acetaminophen (Tylenol) 650 mg PO Q4H PRN PRN Reason: Headache Last Admin: 11/27/16 08:13 Dose: 650 mg Hydrocodone Bitart/Acetaminophen ([place] 325-5 Mg) 1 tab PO Q4H PRN PRN Reason: Pain Last Admin: 11/29/16 20:06 Dose: 1 tab Enoxaparin Sodium (Lovenox) 40 mg SUBCUT Q24H [facility] Last Admin: 11/29/16 08:08 Dose: 40 mg Sodium Chloride (Normal Saline) 250 mls @ 0 mls/hr IV ASDIRECTED [facility] PRN Reason: KVO Last Admin: 11/30/16 00:10 Dose: 100 mls/hr Piperacillin Sod/Tazobactam (Sod 3.375 gm/ Sodium Chloride) 50 mls @ 100 mls/ hr IV Q6H [facility] Last Admin: 11/30/16 06:06 Dose: 100 mls/hr Vancomycin HCl 2,000 mg/ (Sodium Chloride) 500 mls @ 250 mls/hr IV Q12H [facility] Last Admin: 11/29/16 20:08 Dose: 250 mls/hr Ibuprofen (Motrin) 600 mg PO Q6H [facility] Last Admin: 11/30/16 02:28 Dose: 600 mg Levothyroxine Sodium (Levothyroxine) 75 mcg PO ACBREAKFAST [facility] Last Admin: 11/29/16 06:38 Dose: 75 mcg Sodium Chloride (Saline Flush) 10 ml FLUSH ASDIRECTED PRN PRN Reason: Keep Vein Open Last Admin: 11/30/16 06:52 Dose: 10 ml Sodium Chloride (Saline Flush) 10 ml FLUSH ASDIRECTED PRN PRN Reason: IV Use Vancomycin HCl (Pharmacy To Dose - Vancomycin) 1 dose .XX ASDIRECTED [facility] Discontinued Medications Albuterol/Ipratropium (Duoneb 3.0-0.5 Mg/3 Ml) Confirm Administered Dose 3 ml .ROUTE .STK-MED ONE Stop: 11/26/16 15:38 Last Admin: 11/26/16 15:41 Dose: 3 ml Albuterol/Ipratropium (Duoneb 3.0-0.5 Mg/3 Ml) 3 ml NEB ONETIME ONE Stop: 11/26/16 15:42 Last Admin: 11/26/16 15:45 Dose: Not Given Levofloxacin/Dextrose 500 mg/ (Premix) 100 mls @ 100 mls/hr IV ONETIME ONE Stop: 11/26/16 23:13 Last Infusion: 11/26/16 23:46 Dose: Infused Clindamycin Phosphate 600 mg/ (Sodium Chloride) 54 mls @ 150 mls/hr IV Q6H [facility] Last Admin: 11/27/16 13:30 Dose: 150 mls/hr Levofloxacin/Dextrose 500 mg/ (Premix) 100 mls @ 100 mls/hr IV Q24H [facility] Last Admin: 11/28/16 00:07 Dose: 100 mls/hr Vancomycin HCl 2 gm/ Sodium (Chloride) 500 mls @ 250 mls/hr IV Q12H [facility] Last Admin: 11/27/16 21:09 Dose: 250 mls/hr Levofloxacin/Dextrose (Levaquin In D5w 500 Mg/100 Ml) Confirm Administered Dose 100 mls @ as directed IV .STK-MED ONE Stop: 11/27/16 23:48 Last Admin: 11/28/16 00:08 Dose: Not Given Iopamidol (Isovue-370 (76%)) 85 ml IV . DIRECTED ONE Stop: 11/26/16 16:53 Last Admin: 11/26/16 17:09 Dose: 85 ml Ketorolac Tromethamine (Toradol) 10 mg IVPUSH ONETIME ONE Stop: 11/27/16 04:51 Last Admin: 11/27/16 05:11 Dose: 10 mg Meloxicam (Mobic) 15 mg PO DAILY [facility] Last Admin: 11/28/16 08:11 Dose: 15 mg Ondansetron HCl (Zofran) 8 mg IVPUSH ONETIME ONE Stop: 11/26/16 15:18 Last Admin: 11/26/16 15:24 Dose: 8 mg Pantoprazole Sodium (Protonix Iv) 40 mg IVPUSH ONETIME ONE Stop: 11/26/16 15:19 Last Admin: 11/26/16 15:24 Dose: 40 mg Vancomycin HCl (Pharmacy To Dose - Vancomycin) 1 dose .XX ASDIRECTED [facility] - Exam General: Alert, Oriented Extremities: Redness Skin: Other (Dark erythema lower leg about the same. Little warm to palpation but no pain now on palpation) - Problem List & Annotations (1) Cellulitis of leg without foot, left SNOMED Code(s): 106532300 Code(s): L03.116 - CELLULITIS OF LEFT LOWER LIMB Status: Acute Current Visit: Yes - Problem List Review Problem List Initiated/Reviewed/Updated: Yes - Plan Plan:: 1. West Nile is negative. I discussed this with the patient. 2. Overall it appears he is getting better so continue the current antibiotics. 3. Increase ambulation today.
--- NOTE | 2016-11-30 07:56 | PCM.PN ---
- General Info Date of Service: 11/30/16 Admission Dx/Problem (Free Text): Patient doing well with right leg less painful. No fevers, chills, night sweats. - Patient Data Vitals - Most Recent: Last Vital Signs Temp 98.3 F 11/30/16 06:00 Pulse 68 11/30/16 06:00 Resp 18 11/30/16 06:00 BP 127/76 11/30/16 06:00 Pulse Ox 96 11/30/16 06:00 Weight - Most Recent: 328 lb I&O - Last 24 Hours: Intake & Output 11/29/16 11/30/16 11/30/16 22:59 06:59 14:59 Intake Total 650 530 Output Total 1350 Balance 650 -820 Med Orders - Current: Current Medications Acetaminophen (Tylenol) 650 mg PO Q4H PRN PRN Reason: Headache Last Admin: 11/27/16 08:13 Dose: 650 mg Hydrocodone Bitart/Acetaminophen ([place] 325-5 Mg) 1 tab PO Q4H PRN PRN Reason: Pain Last Admin: 11/29/16 20:06 Dose: 1 tab Enoxaparin Sodium (Lovenox) 40 mg SUBCUT Q24H [facility] Last Admin: 11/29/16 08:08 Dose: 40 mg Sodium Chloride (Normal Saline) 250 mls @ 0 mls/hr IV ASDIRECTED [facility] PRN Reason: KVO Last Admin: 11/30/16 00:10 Dose: 100 mls/hr Piperacillin Sod/Tazobactam (Sod 3.375 gm/ Sodium Chloride) 50 mls @ 100 mls/ hr IV Q6H [facility] Last Admin: 11/30/16 06:06 Dose: 100 mls/hr Vancomycin HCl 2,000 mg/ (Sodium Chloride) 500 mls @ 250 mls/hr IV Q12H [facility] Last Admin: 11/29/16 20:08 Dose: 250 mls/hr Levothyroxine Sodium (Levothyroxine) 75 mcg PO ACBREAKFAST [facility] Last Admin: 11/29/16 06:38 Dose: 75 mcg Meloxicam (Mobic) 15 mg PO DAILY [facility] Sodium Chloride (Saline Flush) 10 ml FLUSH ASDIRECTED PRN PRN Reason: Keep Vein Open Last Admin: 11/30/16 06:52 Dose: 10 ml Sodium Chloride (Saline Flush) 10 ml FLUSH ASDIRECTED PRN PRN Reason: IV Use Vancomycin HCl (Pharmacy To Dose - Vancomycin) 1 dose .XX ASDIRECTED [facility] Discontinued Medications Albuterol/Ipratropium (Duoneb 3.0-0.5 Mg/3 Ml) Confirm Administered Dose 3 ml .ROUTE .STK-MED ONE Stop: 11/26/16 15:38 Last Admin: 11/26/16 15:41 Dose: 3 ml Albuterol/Ipratropium (Duoneb 3.0-0.5 Mg/3 Ml) 3 ml NEB ONETIME ONE Stop: 11/26/16 15:42 Last Admin: 11/26/16 15:45 Dose: Not Given Levofloxacin/Dextrose 500 mg/ (Premix) 100 mls @ 100 mls/hr IV ONETIME ONE Stop: 11/26/16 23:13 Last Infusion: 11/26/16 23:46 Dose: Infused Clindamycin Phosphate 600 mg/ (Sodium Chloride) 54 mls @ 150 mls/hr IV Q6H [facility] Last Admin: 11/27/16 13:30 Dose: 150 mls/hr Levofloxacin/Dextrose 500 mg/ (Premix) 100 mls @ 100 mls/hr IV Q24H [facility] Last Admin: 11/28/16 00:07 Dose: 100 mls/hr Vancomycin HCl 2 gm/ Sodium (Chloride) 500 mls @ 250 mls/hr IV Q12H [facility] Last Admin: 11/27/16 21:09 Dose: 250 mls/hr Levofloxacin/Dextrose (Levaquin In D5w 500 Mg/100 Ml) Confirm Administered Dose 100 mls @ as directed IV .STK-MED ONE Stop: 11/27/16 23:48 Last Admin: 11/28/16 00:08 Dose: Not Given Ibuprofen (Motrin) 600 mg PO Q6H [facility] Last Admin: 11/30/16 02:28 Dose: 600 mg Iopamidol (Isovue-370 (76%)) 85 ml IV . DIRECTED ONE Stop: 11/26/16 16:53 Last Admin: 11/26/16 17:09 Dose: 85 ml Ketorolac Tromethamine (Toradol) 10 mg IVPUSH ONETIME ONE Stop: 11/27/16 04:51 Last Admin: 07/31/17 05:11 Dose: 10 mg Meloxicam (Mobic) 15 mg PO DAILY [facility] Last Admin: 11/28/16 08:11 Dose: 15 mg Ondansetron HCl (Zofran) 8 mg IVPUSH ONETIME ONE Stop: 11/26/16 15:18 Last Admin: 11/26/16 15:24 Dose: 8 mg Pantoprazole Sodium (Protonix Iv) 40 mg IVPUSH ONETIME ONE Stop: 11/26/16 15:19 Last Admin: 11/26/16 15:24 Dose: 40 mg Vancomycin HCl (Pharmacy To Dose - Vancomycin) 1 dose .XX ASDIRECTED [facility] - Exam General: Alert, Oriented, Cooperative Extremities: No Pedal Edema, Redness, Other (Right leg swelling) Skin: Other (Very dark erythema lower leg with little erythema in the upper leg. Warm to touch.) - Problem List & Annotations (1) Cellulitis of right leg SNOMED Code(s): 065900033 Code(s): L03.115 - CELLULITIS OF RIGHT LOWER LIMB Status: Acute Current Visit: Yes - Problem List Review Problem List Initiated/Reviewed/Updated: Yes - My Orders Last 24 Hours: My Active Orders 11/30/16 09:00 Meloxicam [Mobic] 15 mg PO DAILY - Plan Plan:: 1. Patient improving with less now negative. 2. He needs to be year with continued vancomycin that's managed by pharmacy and ticarcillin/clavulanate.
[2016-11-30] MEDS: Levothyroxine 75 MCG Tab PO SCH (08:09)
[2016-11-30] MEDS: Enoxaparin 40 MG/0.4 ML Syringe SUBCUT SCH (09:34)
[2016-11-30] MEDS: Acetaminophen 325 MG Tab PO PRN (16:16)
--- NOTE | 2016-11-30 18:44 | PCM.SN ---
- Free Text/Narrative Note: Discussed care with infectious disease and described the lower extremity color and bullae. They agreed that the antibiotics are correct. They stated continue better within a couple days do an MRI. Since his Sunday and there is no MRI available on the weekend I'm going to get an MRI of the right lower extremity tomorrow. Relayed this to the patient's family is more comfortable. Continue current care with MRI in a.m.
[2016-11-30] MEDS: Acetaminophen/HYDROcodone 325-5 MG Tab PO PRN (22:20)
[2016-12-01] MEDS: Sodium Chloride 0.9% 250 ML IV SCH (00:04)
[2016-12-01] MEDS: Piperacillin/Tazobactam 3.375 GM in Sodium Chloride 0.9% 50 ML IV SCH ×4 (00:06→17:29)
[2016-12-01] MEDS: Sodium Chloride 0.9% 10 ML Syringe FLUSH PRN ×4 (00:56→22:05)
[2016-12-01] MEDS: Levothyroxine 75 MCG Tab PO SCH (07:43)
[2016-12-01] MEDS ORDERED: hydrOXYzine HCl 25 MG Tab PO PRN (08:41)
--- NOTE | 2016-12-01 08:41 | PCM.PN ---
- General Info Date of Service: 12/01/16 Admission Dx/Problem (Free Text): Patient states his leg swelling is going down. He believes the redness is a little bit better. He is having some itchiness on the right lower leg. He states when he lets his leg hanging down and does not ache now. - Patient Data Vitals - Most Recent: Last Vital Signs Temp 98.1 F 12/01/16 08:00 Pulse 78 12/01/16 08:00 Resp 18 12/01/16 08:00 BP 144/90 H 12/01/16 08:00 Pulse Ox 95 12/01/16 08:00 Weight - Most Recent: 328 lb I&O - Last 24 Hours: Intake & Output 11/30/16 12/01/16 12/01/16 22:59 06:59 14:59 Intake Total 660 80 Output Total 475 Balance 185 80 Lab Results Last 24 Hours: Laboratory Results - last 24 hr 12/01/16 Range/Units 07:30 Vancomycin Trough 13.2 (10-15) ug/mL Med Orders - Current: Current Medications Acetaminophen (Tylenol) 650 mg PO Q4H PRN PRN Reason: Headache Last Admin: 11/30/16 16:16 Dose: 650 mg Hydrocodone Bitart/Acetaminophen ([place] 325-5 Mg) 1 tab PO Q4H PRN PRN Reason: Pain Last Admin: 11/30/16 22:20 Dose: 1 tab Enoxaparin Sodium (Lovenox) 40 mg SUBCUT Q24H [facility] Last Admin: 11/30/16 09:34 Dose: 40 mg Sodium Chloride (Normal Saline) 250 mls @ 0 mls/hr IV ASDIRECTED [facility] PRN Reason: KVO Last Admin: 12/01/16 00:04 Dose: 100 mls/hr Piperacillin Sod/Tazobactam (Sod 3.375 gm/ Sodium Chloride) 50 mls @ 100 mls/ hr IV Q6H [facility] Last Admin: 12/01/16 06:07 Dose: 100 mls/hr Vancomycin HCl 2,000 mg/ (Sodium Chloride) 500 mls @ 250 mls/hr IV Q12H [facility] Last Admin: 11/30/16 20:25 Dose: 250 mls/hr Levothyroxine Sodium (Levothyroxine) 75 mcg PO ACBREAKFAST [facility] Last Admin: 12/01/16 07:43 Dose: 75 mcg Meloxicam (Mobic) 15 mg PO DAILY [facility] Last Admin: 11/30/16 09:34 Dose: 15 mg Sodium Chloride (Saline Flush) 10 ml FLUSH ASDIRECTED PRN PRN Reason: Keep Vein Open Last Admin: 12/01/16 06:55 Dose: 10 ml Sodium Chloride (Saline Flush) 10 ml FLUSH ASDIRECTED PRN PRN Reason: IV Use Vancomycin HCl (Pharmacy To Dose - Vancomycin) 1 dose .XX ASDIRECTED [facility] Discontinued Medications Albuterol/Ipratropium (Duoneb 3.0-0.5 Mg/3 Ml) Confirm Administered Dose 3 ml .ROUTE .STK-MED ONE Stop: 11/26/16 15:38 Last Admin: 11/26/16 15:41 Dose: 3 ml Albuterol/Ipratropium (Duoneb 3.0-0.5 Mg/3 Ml) 3 ml NEB ONETIME ONE Stop: 11/26/16 15:42 Last Admin: 11/26/16 15:45 Dose: Not Given Levofloxacin/Dextrose 500 mg/ (Premix) 100 mls @ 100 mls/hr IV ONETIME ONE Stop: 11/26/16 23:13 Last Infusion: 11/26/16 23:46 Dose: Infused Clindamycin Phosphate 600 mg/ (Sodium Chloride) 54 mls @ 150 mls/hr IV Q6H [facility] Last Admin: 11/27/16 13:30 Dose: 150 mls/hr Levofloxacin/Dextrose 500 mg/ (Premix) 100 mls @ 100 mls/hr IV Q24H [facility] Last Admin: 11/28/16 00:07 Dose: 100 mls/hr Vancomycin HCl 2 gm/ Sodium (Chloride) 500 mls @ 250 mls/hr IV Q12H [facility] Last Admin: 11/27/16 21:09 Dose: 250 mls/hr Levofloxacin/Dextrose (Levaquin In D5w 500 Mg/100 Ml) Confirm Administered Dose 100 mls @ as directed IV .STK-MED ONE Stop: 11/27/16 23:48 Last Admin: 11/28/16 00:08 Dose: Not Given Ibuprofen (Motrin) 600 mg PO Q6H [facility] Last Admin: 11/30/16 02:28 Dose: 600 mg Iopamidol (Isovue-370 (76%)) 85 ml IV . DIRECTED ONE Stop: 11/26/16 16:53 Last Admin: 11/26/16 17:09 Dose: 85 ml Ketorolac Tromethamine (Toradol) 10 mg IVPUSH ONETIME ONE Stop: 11/27/16 04:51 Last Admin: 11/27/16 05:11 Dose: 10 mg Meloxicam (Mobic) 15 mg PO DAILY [facility] Last Admin: 11/28/16 08:11 Dose: 15 mg Ondansetron HCl (Zofran) 8 mg IVPUSH ONETIME ONE Stop: 11/26/16 15:18 Last Admin: 11/26/16 15:24 Dose: 8 mg Pantoprazole Sodium (Protonix Iv) 40 mg IVPUSH ONETIME ONE Stop: 11/26/16 15:19 Last Admin: 11/26/16 15:24 Dose: 40 mg Vancomycin HCl (Pharmacy To Dose - Vancomycin) 1 dose .XX ASDIRECTED [facility] - Exam General: Alert, Oriented, Cooperative Lungs: Normal Respiratory Effort Skin: Other (Right lower leg erythematous possibly slightly better. He has a couple bolus and a couple have opened up.) - Problem List & Annotations (1) Cellulitis of right leg SNOMED Code(s): 647786286 Code(s): L03.115 - CELLULITIS OF RIGHT LOWER LIMB Status: Acute Current Visit: Yes - Problem List Review Problem List Initiated/Reviewed/Updated: Yes - My Orders Last 24 Hours: My Active Orders 11/30/16 09:00 Meloxicam [Mobic] 15 mg PO DAILY - Plan Plan:: 1. Continue IV antibiotics. 2. Vistaril when necessary for pruritus. 3. I was going to order MRI. There is no staff for the next 3 days to do an MRI. So I will cancel. And reconsider if he gets worse.
[2016-12-01] MEDS: Enoxaparin 40 MG/0.4 ML Syringe SUBCUT SCH (09:12)
[2016-12-02] MEDS: Sodium Chloride 0.9% 250 ML IV SCH (00:28)
[2016-12-02] MEDS: Piperacillin/Tazobactam 3.375 GM in Sodium Chloride 0.9% 50 ML IV SCH ×4 (00:28→18:19)
[2016-12-02] MEDS: Sodium Chloride 0.9% 10 ML Syringe FLUSH PRN ×6 (01:20→21:40)
[2016-12-02] MEDS: Levothyroxine 75 MCG Tab PO SCH (07:38)
[2016-12-02] MEDS: Enoxaparin 40 MG/0.4 ML Syringe SUBCUT SCH (09:25)
--- NOTE | 2016-12-02 09:49 | PCM.PN ---
- General Info Date of Service: 12/02/16 Admission Dx/Problem (Free Text): Patient states his right leg feels a little bit better with less pressure and pain. Denies fevers, chills, diaphoresis. He states that her leg is still very red. - Patient Data Vitals - Most Recent: Last Vital Signs Temp 98.8 F 12/02/16 06:40 Pulse 74 12/02/16 06:40 Resp 18 12/02/16 06:40 BP 134/81 12/02/16 06:40 Pulse Ox 96 12/02/16 06:40 Weight - Most Recent: 328 lb I&O - Last 24 Hours: Intake & Output 12/01/16 12/02/16 12/02/16 22:59 06:59 14:59 Intake Total 1030 380 530 Output Total 750 1350 Balance 280 -970 530 Med Orders - Current: Current Medications Acetaminophen (Tylenol) 650 mg PO Q4H PRN PRN Reason: Headache Last Admin: 11/30/16 16:16 Dose: 650 mg Hydrocodone Bitart/Acetaminophen ([place] 325-5 Mg) 1 tab PO Q4H PRN PRN Reason: Pain Last Admin: 11/30/16 22:20 Dose: 1 tab Enoxaparin Sodium (Lovenox) 40 mg SUBCUT Q24H [facility] Last Admin: 12/02/16 09:25 Dose: 40 mg Hydroxyzine HCl (Atarax) 25 mg PO Q6H PRN PRN Reason: Itching Sodium Chloride (Normal Saline) 250 mls @ 0 mls/hr IV ASDIRECTED [facility] PRN Reason: KVO Last Admin: 12/02/16 00:28 Dose: 100 mls/hr Piperacillin Sod/Tazobactam (Sod 3.375 gm/ Sodium Chloride) 50 mls @ 100 mls/ hr IV Q6H [facility] Last Admin: 12/02/16 06:07 Dose: 100 mls/hr Vancomycin HCl 2,000 mg/ (Sodium Chloride) 500 mls @ 250 mls/hr IV Q12H [facility] Last Admin: 12/02/16 07:52 Dose: 250 mls/hr Levothyroxine Sodium (Levothyroxine) 75 mcg PO ACBREAKFAST [facility] Last Admin: 12/02/16 07:38 Dose: 75 mcg Meloxicam (Mobic) 15 mg PO DAILY [facility] Last Admin: 12/02/16 09:26 Dose: 15 mg Sodium Chloride (Saline Flush) 10 ml FLUSH ASDIRECTED PRN PRN Reason: Keep Vein Open Last Admin: 12/02/16 07:51 Dose: 10 ml Sodium Chloride (Saline Flush) 10 ml FLUSH ASDIRECTED PRN PRN Reason: IV Use Vancomycin HCl (Pharmacy To Dose - Vancomycin) 1 dose .XX ASDIRECTED [facility] Discontinued Medications Albuterol/Ipratropium (Duoneb 3.0-0.5 Mg/3 Ml) Confirm Administered Dose 3 ml .ROUTE .STK-MED ONE Stop: 11/26/16 15:38 Last Admin: 11/26/16 15:41 Dose: 3 ml Albuterol/Ipratropium (Duoneb 3.0-0.5 Mg/3 Ml) 3 ml NEB ONETIME ONE Stop: 11/26/16 15:42 Last Admin: 11/26/16 15:45 Dose: Not Given Levofloxacin/Dextrose 500 mg/ (Premix) 100 mls @ 100 mls/hr IV ONETIME ONE Stop: 11/26/16 23:13 Last Infusion: 11/26/16 23:46 Dose: Infused Clindamycin Phosphate 600 mg/ (Sodium Chloride) 54 mls @ 150 mls/hr IV Q6H [facility] Last Admin: 11/27/16 13:30 Dose: 150 mls/hr Levofloxacin/Dextrose 500 mg/ (Premix) 100 mls @ 100 mls/hr IV Q24H [facility] Last Admin: 11/28/16 00:07 Dose: 100 mls/hr Vancomycin HCl 2 gm/ Sodium (Chloride) 500 mls @ 250 mls/hr IV Q12H [facility] Last Admin: 11/27/16 21:09 Dose: 250 mls/hr Levofloxacin/Dextrose (Levaquin In D5w 500 Mg/100 Ml) Confirm Administered Dose 100 mls @ as directed IV .STK-MED ONE Stop: 11/27/16 23:48 Last Admin: 11/28/16 00:08 Dose: Not Given Ibuprofen (Motrin) 600 mg PO Q6H [facility] Last Admin: 11/30/16 02:28 Dose: 600 mg Iopamidol (Isovue-370 (76%)) 85 ml IV . DIRECTED ONE Stop: 11/26/16 16:53 Last Admin: 11/26/16 17:09 Dose: 85 ml Ketorolac Tromethamine (Toradol) 10 mg IVPUSH ONETIME ONE Stop: 11/27/16 04:51 Last Admin: 11/27/16 05:11 Dose: 10 mg Meloxicam (Mobic) 15 mg PO DAILY [facility] Last Admin: 11/28/16 08:11 Dose: 15 mg Ondansetron HCl (Zofran) 8 mg IVPUSH ONETIME ONE Stop: 11/26/16 15:18 Last Admin: 11/26/16 15:24 Dose: 8 mg Pantoprazole Sodium (Protonix Iv) 40 mg IVPUSH ONETIME ONE Stop: 11/26/16 15:19 Last Admin: 11/26/16 15:24 Dose: 40 mg Vancomycin HCl (Pharmacy To Dose - Vancomycin) 1 dose .XX ASDIRECTED [facility] - Exam General: Alert, Oriented, Cooperative Extremities: Other (Right lower leg was still lots of erythema and has not really retracted back from the demarcation lines. Less warm and painful to touch. He has a couple bolus that it opened up with clear fluid.) - Problem List & Annotations (1) Cellulitis of right leg SNOMED Code(s): 355977557 Code(s): L03.115 - CELLULITIS OF RIGHT LOWER LIMB Status: Acute Current Visit: Yes - Problem List Review Problem List Initiated/Reviewed/Updated: Yes - Plan Plan:: 1. Continue IV antibiotics. 2. Vistaril when necessary for pruritus. 3. Hopefully one more day and we can discharge him. Patient definitely needs to be ordered to make sure that this is not going to get worse.
[2016-12-03] MEDS: Sodium Chloride 0.9% 250 ML IV SCH (00:25)
[2016-12-03] MEDS: Piperacillin/Tazobactam 3.375 GM in Sodium Chloride 0.9% 50 ML IV SCH ×2 (00:25→06:55)
[2016-12-03] MEDS: Levothyroxine 75 MCG Tab PO SCH (06:55)
[2016-12-03 07:49] VITALS: BP 114/67
--- NOTE | 2016-12-03 08:05 | PCM.PN ---
- General Info Date of Service: 12/03/16 Admission Dx/Problem (Free Text): Patient states the leg is itchy. Is having no pain, fevers, chills. We wrapped the leg yesterday and the swelling is down according to the patient. - Patient Data Vitals - Most Recent: Last Vital Signs Temp 98.6 F 12/03/16 07:30 Pulse 65 12/03/16 07:30 Resp 20 12/03/16 07:30 BP 114/67 12/03/16 07:30 Pulse Ox 95 12/03/16 07:30 Weight - Most Recent: 328 lb I&O - Last 24 Hours: Intake & Output 12/02/16 12/03/16 12/03/16 22:59 06:59 14:59 Intake Total 690 50 530 Output Total 1720 400 Balance 690 -1670 130 Med Orders - Current: Current Medications Acetaminophen (Tylenol) 650 mg PO Q4H PRN PRN Reason: Headache Last Admin: 11/30/16 16:16 Dose: 650 mg Hydrocodone Bitart/Acetaminophen ([place] 325-5 Mg) 1 tab PO Q4H PRN PRN Reason: Pain Last Admin: 11/30/16 22:20 Dose: 1 tab Enoxaparin Sodium (Lovenox) 40 mg SUBCUT Q24H [facility] Last Admin: 12/02/16 09:25 Dose: 40 mg Hydroxyzine HCl (Atarax) 25 mg PO Q6H PRN PRN Reason: Itching Sodium Chloride (Normal Saline) 250 mls @ 0 mls/hr IV ASDIRECTED [facility] PRN Reason: KVO Last Admin: 12/03/16 00:25 Dose: 100 mls/hr Piperacillin Sod/Tazobactam (Sod 3.375 gm/ Sodium Chloride) 50 mls @ 100 mls/ hr IV Q6H [facility] Last Admin: 12/03/16 06:55 Dose: 100 mls/hr Vancomycin HCl 2,000 mg/ (Sodium Chloride) 500 mls @ 250 mls/hr IV Q12H [facility] Last Admin: 12/03/16 07:46 Dose: 250 mls/hr Levothyroxine Sodium (Levothyroxine) 75 mcg PO ACBREAKFAST [facility] Last Admin: 12/03/16 06:55 Dose: 75 mcg Meloxicam (Mobic) 15 mg PO DAILY [facility] Last Admin: 12/02/16 09:26 Dose: 15 mg Sodium Chloride (Saline Flush) 10 ml FLUSH ASDIRECTED PRN PRN Reason: Keep Vein Open Last Admin: 12/02/16 21:40 Dose: 10 ml Sodium Chloride (Saline Flush) 10 ml FLUSH ASDIRECTED PRN PRN Reason: IV Use Vancomycin HCl (Pharmacy To Dose - Vancomycin) 1 dose .XX ASDIRECTED [facility] Discontinued Medications Albuterol/Ipratropium (Duoneb 3.0-0.5 Mg/3 Ml) Confirm Administered Dose 3 ml .ROUTE .STK-MED ONE Stop: 11/26/16 15:38 Last Admin: 11/26/16 15:41 Dose: 3 ml Albuterol/Ipratropium (Duoneb 3.0-0.5 Mg/3 Ml) 3 ml NEB ONETIME ONE Stop: 11/26/16 15:42 Last Admin: 11/26/16 15:45 Dose: Not Given Levofloxacin/Dextrose 500 mg/ (Premix) 100 mls @ 100 mls/hr IV ONETIME ONE Stop: 11/26/16 23:13 Last Infusion: 11/26/16 23:46 Dose: Infused Clindamycin Phosphate 600 mg/ (Sodium Chloride) 54 mls @ 150 mls/hr IV Q6H [facility] Last Admin: 11/27/16 13:30 Dose: 150 mls/hr Levofloxacin/Dextrose 500 mg/ (Premix) 100 mls @ 100 mls/hr IV Q24H [facility] Last Admin: 11/28/16 00:07 Dose: 100 mls/hr Vancomycin HCl 2 gm/ Sodium (Chloride) 500 mls @ 250 mls/hr IV Q12H [facility] Last Admin: 11/27/16 21:09 Dose: 250 mls/hr Levofloxacin/Dextrose (Levaquin In D5w 500 Mg/100 Ml) Confirm Administered Dose 100 mls @ as directed IV .STK-MED ONE Stop: 11/27/16 23:48 Last Admin: 11/28/16 00:08 Dose: Not Given Ibuprofen (Motrin) 600 mg PO Q6H [facility] Last Admin: 11/30/16 02:28 Dose: 600 mg Iopamidol (Isovue-370 (76%)) 85 ml IV . DIRECTED ONE Stop: 11/26/16 16:53 Last Admin: 11/26/16 17:09 Dose: 85 ml Ketorolac Tromethamine (Toradol) 10 mg IVPUSH ONETIME ONE Stop: 11/27/16 04:51 Last Admin: 11/27/16 05:11 Dose: 10 mg Meloxicam (Mobic) 15 mg PO DAILY [facility] Last Admin: 11/28/16 08:11 Dose: 15 mg Ondansetron HCl (Zofran) 8 mg IVPUSH ONETIME ONE Stop: 11/26/16 15:18 Last Admin: 11/26/16 15:24 Dose: 8 mg Pantoprazole Sodium (Protonix Iv) 40 mg IVPUSH ONETIME ONE Stop: 11/26/16 15:19 Last Admin: 11/26/16 15:24 Dose: 40 mg Vancomycin HCl (Pharmacy To Dose - Vancomycin) 1 dose .XX ASDIRECTED [facility] - Exam General: Alert, Oriented Skin: Other (Erythema about the same. Less swelling) - Problem List & Annotations (1) Cellulitis of right leg SNOMED Code(s): 198704957 Code(s): L03.115 - CELLULITIS OF RIGHT LOWER LIMB Status: Acute Current Visit: Yes - Problem List Review Problem List Initiated/Reviewed/Updated: Yes - My Orders Last 24 Hours: My Active Orders 12/03/16 09:55 Ready for Discharge [RC] PER UNIT ROUTINE - Plan Plan:: 1. Discharge to home on Augmentin and Bactrim. 2. Wrap the leg for week and then after that his compression stockings. 3. He'll follow up with a doctor in [place]. He is going to stay with his sister for one week. 4. Off work for 1 week
--- NOTE | 2016-12-03 08:17 | PCM.DCSUM1 ---
Discharge Summary - Hospital Course Free Text/Narrative:: Hospital course-patient he had elevated white count in the ER and the CAT scan of the lungs was done along with a chest x-ray that were both negative. The ER doctor admitted him and gave him 1 dose of Levaquin. He did not see the rash on his legs because had not developed at that time. The next morning patient started having a rash in the right lower leg. This was consistent with cellulitis. His Levaquin was stopped and he was switched to vancomycin and Zosyn. He was on that until the day of discharge on 12/03. Patient had lots of systemic symptoms with fevers, chills, diaphoresis, full body aches. West [place] was checked and it was negative. Venous Doppler was done of the right lower extremity that showed no DVT. Patient slowly recovered. His white count on the was 15.1. The next day to was 13.8 and on 11/29 it was 10.2. His systemic symptoms slowly abated until they're gone. The redness in the right lower extremity continued. Consult verbally on the phone with the ID. They concurred that the Zosyn with vancomycin the right antibiotics. They stated if it didn't get better to go ahead and get MRI make sure it's not a deeper infection. MRI was not available to me. But the patient improved. We did blood cultures that are negative. We will be discharge to home with Augmentin 875 twice a day and Bactrim DS twice a day to cover MRSA. He is going home with his sister and niece to [place]. He should follow-up with a doctor in [place] in 1 week. He should be out of work for one week. If he is doing better he can restart work. Wrap his leg for 1 week with an Rodney bandage to get swelling down. 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 He states he lives in his truck and drives 7 days a week from here to [facility]. He says he'll dysuria wants but no pyuria or hematuria. He has no diarrhea, hematochezia or melena. He states he ate hamburger that was-day-old at a truck stop that maybe that's the reason he's having problems. He has had no tick exposure but has been bitten by mosquitoes. He feels very weak. He has no headaches or joint pain that he knows of. Denies rashes. He says he has a little bit of pain in his right medial thigh. Some chest pain last night it was worse with deep inspiration and rolling to his left. The him some oxygen he says that made it better and Tylenol did not help. Troponin and EKG were negative. - Discharge Data Discharge Date: 12/03/16 Discharge Disposition: Home, Self-Care 01 Condition: Good - Discharge Diagnosis/Problem(s) (1) Cellulitis of right leg SNOMED Code(s): 509338719 ICD Code: L03.115 - CELLULITIS OF RIGHT LOWER LIMB Status: Acute Current Visit: Yes - Patient Instructions Diet: Regular Diet as Tolerated Activity: As Tolerated Driving: May Drive Today Showering/Bathing: May Shower Notify Provider of: Fever, Increased Pain, Swelling and Redness, Drainage Other/Special Instructions: 1. Recheck with a doctor in [place] in 1 week. 2. Off work for one week. Then he can resume his [employer] job. 3. If patient has problems have him call Dr. Mcdonald at [phone]. [facility]. - Discharge Plan Prescriptions/Med Rec: Amoxicillin/Clavulanate K [Augmentin 875 MG] 1 tab PO BID #14 tablet Sulfamethoxazole/Trimethoprim [Bactrim Ds Tablet] 1 each PO BID #14 tablet Home Medications: Home Meds Levothyroxine 75 mcg PO ACBREAKFAST 11/26/16 [History] Meloxicam [Mobic] 15 mg PO DAILY 11/26/16 [History] Amoxicillin/Clavulanate K [Augmentin 875 MG] 1 tab PO BID #14 tablet 12/02/16 [ Rx] Sulfamethoxazole/Trimethoprim [Bactrim Ds Tablet] 1 each PO BID #14 tablet 12/02 [Rx] Patient Handouts: Cellulitis, Adult Forms: ED Department Discharge Referrals: PCP,None [Primary Care Provider] - - Discharge Summary/Plan Comment DC Time >30 min.: No - Patient Data Vitals - Most Recent: Last Vital Signs Temp 98.6 F 12/03/16 07:30 Pulse 65 12/03/16 07:30 Resp 20 12/03/16 07:30 BP 114/67 12/03/16 07:30 Pulse Ox 95 12/03/16 07:30 Weight - Most Recent: 328 lb I&O - Last 24 hours: Intake & Output 12/02/16 12/03/16 12/03/16 22:59 06:59 14:59 Intake Total 690 50 530 Output Total 1720 400 Balance 690 -1670 130 Med Orders - Current: Current Medications Acetaminophen (Tylenol) 650 mg PO Q4H PRN PRN Reason: Headache Last Admin: 11/30/16 16:16 Dose: 650 mg Hydrocodone Bitart/Acetaminophen ([place] 325-5 Mg) 1 tab PO Q4H PRN PRN Reason: Pain Last Admin: 11/30/16 22:20 Dose: 1 tab Enoxaparin Sodium (Lovenox) 40 mg SUBCUT Q24H [facility] Last Admin: 12/02/16 09:25 Dose: 40 mg Hydroxyzine HCl (Atarax) 25 mg PO Q6H PRN PRN Reason: Itching Sodium Chloride (Normal Saline) 250 mls @ 0 mls/hr IV ASDIRECTED [facility] PRN Reason: KVO Last Admin: 12/03/16 00:25 Dose: 100 mls/hr Piperacillin Sod/Tazobactam (Sod 3.375 gm/ Sodium Chloride) 50 mls @ 100 mls/ hr IV Q6H [facility] Last Admin: 12/03/16 06:55 Dose: 100 mls/hr Vancomycin HCl 2,000 mg/ (Sodium Chloride) 500 mls @ 250 mls/hr IV Q12H [facility] Last Admin: 12/03/16 07:46 Dose: 250 mls/hr Levothyroxine Sodium (Levothyroxine) 75 mcg PO ACBREAKFAST [facility] Last Admin: 12/03/16 06:55 Dose: 75 mcg Meloxicam (Mobic) 15 mg PO DAILY [facility] Last Admin: 12/02/16 09:26 Dose: 15 mg Sodium Chloride (Saline Flush) 10 ml FLUSH ASDIRECTED PRN PRN Reason: Keep Vein Open Last Admin: 12/02/16 21:40 Dose: 10 ml Sodium Chloride (Saline Flush) 10 ml FLUSH ASDIRECTED PRN PRN Reason: IV Use Vancomycin HCl (Pharmacy To Dose - Vancomycin) 1 dose .XX ASDIRECTED [facility] Discontinued Medications Albuterol/Ipratropium (Duoneb 3.0-0.5 Mg/3 Ml) Confirm Administered Dose 3 ml .ROUTE .STK-MED ONE Stop: 11/26/16 15:38 Last Admin: 11/26/16 15:41 Dose: 3 ml Albuterol/Ipratropium (Duoneb 3.0-0.5 Mg/3 Ml) 3 ml NEB ONETIME ONE Stop: 11/26/16 15:42 Last Admin: 11/26/16 15:45 Dose: Not Given Levofloxacin/Dextrose 500 mg/ (Premix) 100 mls @ 100 mls/hr IV ONETIME ONE Stop: 11/26/16 23:13 Last Infusion: 11/26/16 23:46 Dose: Infused Clindamycin Phosphate 600 mg/ (Sodium Chloride) 54 mls @ 150 mls/hr IV Q6H [facility] Last Admin: 11/27/16 13:30 Dose: 150 mls/hr Levofloxacin/Dextrose 500 mg/ (Premix) 100 mls @ 100 mls/hr IV Q24H [facility] Last Admin: 11/28/16 00:07 Dose: 100 mls/hr Vancomycin HCl 2 gm/ Sodium (Chloride) 500 mls @ 250 mls/hr IV Q12H [facility] Last Admin: 11/27/16 21:09 Dose: 250 mls/hr Levofloxacin/Dextrose (Levaquin In D5w 500 Mg/100 Ml) Confirm Administered Dose 100 mls @ as directed IV .STK-MED ONE Stop: 11/27/16 23:48 Last Admin: 11/28/16 00:08 Dose: Not Given Ibuprofen (Motrin) 600 mg PO Q6H [facility] Last Admin: 11/30/16 02:28 Dose: 600 mg Iopamidol (Isovue-370 (76%)) 85 ml IV . DIRECTED ONE Stop: 11/26/16 16:53 Last Admin: 11/26/16 17:09 Dose: 85 ml Ketorolac Tromethamine (Toradol) 10 mg IVPUSH ONETIME ONE Stop: 11/27/16 04:51 Last Admin: 11/27/16 05:11 Dose: 10 mg Meloxicam (Mobic) 15 mg PO DAILY [facility] Last Admin: 11/28/16 08:11 Dose: 15 mg Ondansetron HCl (Zofran) 8 mg IVPUSH ONETIME ONE Stop: 11/26/16 15:18 Last Admin: 11/26/16 15:24 Dose: 8 mg Pantoprazole Sodium (Protonix Iv) 40 mg IVPUSH ONETIME ONE Stop: 11/26/16 15:19 Last Admin: 11/26/16 15:24 Dose: 40 mg Vancomycin HCl (Pharmacy To Dose - Vancomycin) 1 dose .XX ASDIRECTED [facility] *Q Meaningful Use (DIS) - VTE *Q VTE Criteria *Q: - Stroke *Q Stroke Criteria *Q: - AMI *Q AMI Criteria *Q:
[2016-12-03] MEDS: Enoxaparin 40 MG/0.4 ML Syringe SUBCUT SCH (08:50)
== END 2016-12-03 11:25 | disposition home or self-care (01) | DRG 144 ==
LOC: FB.ED 15:10 → FB.MS 18:54 → OBSVTOIN 11-29 10:15
PROVIDERS: ADMIT Family Medicine; ATTEND Family Medicine
DX: J40 Bronchitis, not specified as acute or chronic (principal); L03.115 Cellulitis of right lower limb; R52 Pain, unspecified; Z86.39 Personal history of other endocrine, nutritional and metabolic disease; E66.01 Morbid (severe) obesity due to excess calories; Z68.42 Body mass index [BMI] 45.0-49.9, adult; M19.90 Unspecified osteoarthritis, unspecified site; R30.0 Dysuria; Z59.0 Homelessness; R50.9 Fever, unspecified; R23.8 Other skin changes
CPT/HCPCS: 36415; 71010; 71275; 80048; 80202; 81001; 83605; 83880; 84484; 85025; 85379; 86788; 86789; 87040; 93005; 93971-RT; 94150; 94664; 96365; 96366; 96367; 96372; 96374; 96375; 99285; A9270-GY; C9113; G0378; J1650; J1885; J1956; J2405; J2543; J3370; J7040; J7050; J7620; Q9967; S0077